=== PATIENT | female | born 1955 | race Caucasian/White ===

== ENCOUNTER → 2016-08-25 | Outpatient (CLI) | payer OTHER ==
[~2016-08-25] MED LIST: ACET1TAB84 PO; HYDR-5688 PO; LOSA50TA6 PO; NAPR1TAB9 PO
== END | disposition home or self-care (01) ==
LOC: C.PATHSPEC 13:29
PROVIDERS: ATTEND Dermatology
DX: L57.0 Actinic keratosis (principal)

== ENCOUNTER → 2016-09-12 | Outpatient (CLI) | payer OTHER ==
[2016-09-12 13:45] LABS: BASO % 0.5 %; BASO ABS # 0.03 K/uL (0-0.2); COMPLETE YES; EOS % 5.9 %; HEMATOCRIT 41.6 % (37-47); IG% 0.3 %; LYMPH % 22.1 %; LYMPH ABS # 1.41 K/uL (1.2-3.4); MEAN CELL VOLUME 89.3 fL (80-100); MEAN CORPUSCULAR HEMOGLOBIN 29.6 pg (25-34); MEAN CORPUSCULAR HGB CONC 33.2 g/dl (32-36); MEAN PLATELET VOLUME 11.3 fL (7.4-10.4); MONO % 9.5 %; NEUT % 61.7 %; PLATELET COUNT 174 K/uL (130-400); RED BLOOD COUNT 4.66 M/uL (4.2-5.4); WHITE BLOOD COUNT 6.39 K/uL (4.8-10.8)
[2016-09-12 15:16] LABS: ALT/SGPT 46 U/L (12-78); BLOOD UREA NITROGEN 13 mg/dl (7-18); BUN/CREATININE RATIO 16.8 (10-20); CALCIUM 8.9 mg/dl (8.5-10.1); CARBON DIOXIDE 30 mmol/L (21-32); CHLORIDE 108 mmol/L (98-107); CHOLESTEROL 172 mg/dl (0-200); GLUCOSE 111 mg/dl (70-99); POTASSIUM 4.2 mmol/L (3.5-5.1); SODIUM 141 mmol/L (136-145); TRIGLYCERIDES 136 mg/dl (0-150); VERY LOW DENSITY LIPOPROT CALC 27 mg/dl
[2016-09-12 15:26] LABS: ALKALINE PHOSPHATASE 60 U/L (45-117); AST/SGOT 25 U/L (15-37); CHOLESTEROL/HDL RATIO 3.6; HDL CHOLESTEROL 48 mg/dl; LDL CHOLESTEROL CALCULATED 97 mg/dl
== END | disposition home or self-care (01) ==
LOC: C.LABMFLN 07:59
PROVIDERS: ATTEND Family Medicine
DX: E78.5 Hyperlipidemia, unspecified (principal); I10 Essential (primary) hypertension

== ENCOUNTER → 2016-09-22 | Outpatient (CLI) | payer OTHER ==
--- NOTE | 2016-09-22 14:32 | MAMMOGRAPHY REPORT ---
BILATERAL DIGITAL SCREENING MAMMOGRAM WITH CAD: 09/22/2016 CLINICAL HISTORY: Routine screening. TECHNIQUE: Current study was also evaluated with a Computer Aided Detection (CAD) system. Bilateral CC and MLO views were obtained. COMPARISON: Comparison is made to exams dated: 09/21/2015 mammogram, 07/11/2013 mammogram, 09/11/2014 itz mogram, 07/09/2012 mammogram, 07/07/2011 mammogram, and 07/01/2010 mammogram - [facility] BREAST COMPOSITION: There are scattered areas of fibroglandular density in both breasts. FINDINGS: No suspicious masses, calcifications, or areas of architectural distortion are noted in ei ther breast. There has been no significant interval change compared to prior exams. Bilateral benign -appearing calcifications are not significantly changed, including a small cluster of calcifications in the left upper outer quadrant which is stable dating back to at least the 2007 exam. IMPRESSION: ACR BI-RADS CATEGORY 2: BENIGN There is no mammographic evidence of malignancy. A 1 year screening mammogram is recommended. The pa tient will receive written notification of the results. Approximately 10% of breast cancers are not detected with mammography. A negative mammographic report should not delay biopsy if a clinically suggestive mass is present. Vijaya Person M.D. ah/:09/22/2016 10:33:19 Central Supply Assistant: Stephan BHANDARI)(M), [facility] letter sent: Normal 1/2 BI-RADS Code: ACR BI-RADS Category 2: Benign
== END | disposition home or self-care (01) ==
LOC: C.MAMM 09:52
PROVIDERS: ATTEND Obstetrics & Gynecology
DX: Z12.31 Encounter for screening mammogram for malignant neoplasm of breast (principal)

== ENCOUNTER → 2016-11-03 | Day surgery (SDC) | payer OTHER ==
[2016-10-18 15:14] VITALS: BMI 44.0
[~2016-11-03] VITALS: Ht 157.5 cm; Wt 109.1 kg
[~2016-11-03] MED LIST changes: -ACET1TAB84 PO; -HYDR-5688 PO; +LIDOCAINE HCL 2% 2 ML VIAL (20MG/ML) ONE; +PROPOFOL IV EMULSION 10 MG/ML 20 ML VIAL IV ONE; +SODIUM CHLORIDE 0.9% 500ML 500 ML IV ONE
[2016-11-03 08:22] VITALS: Ht 157.5 cm; Wt 109.1 kg
--- NOTE | 2016-11-03 08:29 | Endo History and Physical ---
History & Physical Date of Service: Nov 03, 2016. Chief Complaint: Screening Referring Physician: Dr. Small History of Present Illness 61 yo CF who presents for screening colonoscopy. Past Surgical History Hx Cardiac Surgery: No Hx Internal Defibrillator: No Hx Pacemaker: No Hx Abdominal Surgery: Yes ( X2) Hx of Implantable Prosthesis: No Hx Post-Op Nausea and Vomiting: No Hx Cancer Surgery: No Hx Thoracic Surgery: No Hx Orthopedic: Yes (LT ANKLE REPAIR S/P BREAK) Hx Urinary Tract Surgery: No Family History IBD Social History Smoking Status: Never Smoker Hx Substance Use: No Hx Alcohol Use: No Allergies Coded Allergies: Levofloxacin (Verified Allergy, Unknown, RAPID HEART BEAT, 11/03/16) Current Medications Reported Home Medications Medications Dose Route/Sig Max Daily Dose Days Date Category Aleve (Naproxen) 220 Mg Tab 220 Mg PO DAILY PRN 10/18/16 Reported Cozaar (Losartan Potassium) 50 Mg Tab 50 Mg PO QAM 10/18/16 Reported Vital Signs Weight (Kilograms): 109.09 Height (Feet): 5 Height (Inches): 2 Physical Exam General Appearance: WD/WN, no apparent distress Respiratory/Chest: Auscultation: breath sounds normal Cardiovascular: Heart Auscultation: RRR Abdomen: Bowel Sounds: normal Inspection & Palpation: soft, non-distended, no tenderness, guarding & rebound Assessment and Plan Assessment: 61 yo CF who presents for screening colonoscopy. Plan: Proceed with colonoscopy.
--- NOTE | 2016-11-03 09:02 | GI REPORT ---
Procedure Date: 11/03/2016 8:27 AM Procedure: Colonoscopy Indications: Screening for colorectal malignant neoplasm Medicines: Monitored Anesthesia Care Complications: No immediate complications. Estimated Blood Loss: Estimated blood loss: none. Procedure: Pre-Anesthesia Assessment: - Prior to the procedure, a History and Physical was performed, and patient medications and allergies were reviewed. The patient's tolerance of previous anesthesia was also reviewed. The risks and benefits of the procedure and the sedation options and risks were discussed with the patient. All questions were answered, and informed consent was obtained. Prior Anticoagulants: The patient has taken no previous anticoagulant or antiplatelet agents. ASA Grade Assessment: III - A patient with severe systemic disease. After reviewing the risks and benefits, the patient was deemed in satisfactory condition to undergo the procedure. After I obtained informed consent, the scope was passed under direct vision. Throughout the procedure, the patient's blood pressure, pulse, and oxygen saturations were monitored continuously. The scope was introduced through the anus and advanced to the terminal ileum. The colonoscopy was performed without difficulty. The patient tolerated the procedure well. The quality of the bowel preparation was good. The terminal ileum, ileocecal valve, appendiceal orifice, and rectum were photographed. Findings: Non-bleeding internal hemorrhoids were found during retroflexion. The hemorrhoids were small. The exam was otherwise without abnormality. Impression: - Non-bleeding internal hemorrhoids. - The examination was otherwise normal. - No specimens collected. Recommendation: - Resume previous diet. - Continue present medications. - Repeat colonoscopy in 10 years for surveillance. - Return to primary care physician as previously scheduled. Denny Lam DO 11/03/2016 9:02:04 AM This report has been signed electronically. Note Initiated On: 11/03/2016 8:27 AM I attest to the content of the Intraoperative Record and orders documented therein, exceptions below
--- NOTE | 2016-11-03 09:03 | Discharge Instructions ---
Endoscopy Patient Instructions Date / Procedure(s) Performed Nov 03, 2016. Colonoscopy Allergy Information Coded Allergies: Levofloxacin (Verified Allergy, Unknown, RAPID HEART BEAT, 11/03/16) Discharge Date / Findings Nov 03, 2016. Internal hemorrhoids Medication Instructions OK to resume all medications today as prescribed Reported Home Medications Medications Dose Route/Sig Max Daily Dose Days Date Category Aleve (Naproxen) 220 Mg Tab 220 Mg PO DAILY PRN 10/18/16 Reported Cozaar (Losartan Potassium) 50 Mg Tab 50 Mg PO QAM 10/18/16 Reported Provider Instructions Activity Restrictions - No exercising or heavy lifting for 24 hours. - Do not drink alcohol the day of the procedure. - Do not drive a car or operate machinery until the day after the procedure. - Do not make any important decisions or sign important papers in 24 hours after the procedure. Following Day: - Return to full activity which may include returning to work/school. Diet Start your diet with liquids and light foods (jello, soup, juice, toast). Then eat your usual diet if not nauseated. Treatment For Common After Affects For mild abdominal pain, bloating, or excessive gas: - Rest - Eat lightly - Lie on right side Follow-Up Information Follow-up with dr. rushing as scheduled Anesthesia Information What You Should Know You have had a procedure that required some medicine to reduce anxiety and discomfort. This treatment is called moderate sedation. After receiving the treatment, you may be sleepy, but you will be able to breathe on your own. The effects of the treatment may last for several hours. Follow these instructions along with Activity/Diet recommendations noted above: * Do NOT do anything where dizziness or clumsiness would be dangerous. * Rest quietly at home today, then you can be up and about tomorrow. * Have a responsible person stay with you the rest of today. * You may have had an I.V. today. If so, you may take the dressing off later today. Recommendations Call your doctor if: * Trouble breathing * Continuous vomiting for more than 24 hours * Temperature above 101 degrees * Severe abdominal pain or bloating * Pain not relieved by pain medicine ordered * There is increased drainage or redness from any incision * A large amount of rectal bleeding greater than 2-3 tablespoons. (If you had a polyp/s removed or have hemorrhoids, a small amount of blood - from the rectum is to be expected.) * You have any unanswered questions or concerns. IN THE EVENT OF A SERIOUS EMERGENCY, GO TO THE NEAREST EMERGENCY ROOM Your discharge instructions were prepared by provider Denny Lam. Patient Instructions Signature Page Kathia [place] Patient (or Guardian) Signature/Date: I have read and understand the instructions given to me by my caregivers. Caregiver/RN/Doctor Signature/Date: The above-named patient and/or guardian has received patient instructions on this date. + Original Patient Signature Page (only) stays with chart. Please make copy for patient.
--- NOTE | 2016-11-03 09:30 | Anesthesiology Progress Note ---
Anesthesia Post Op Note Date & Time Nov 03, 2016 at 09:30 Vital Signs Pain Intensity: 0 Vital Signs Past 12 Hours Date Time Temp Pulse Resp B/P (MAP) Pulse Ox O2 Delivery O2 Flow Rate FiO2 11/03/16 09:00 87 20 119/69 (86) 96 Room Air 11/03/16 08:31 36.9 87 18 133/89 (104) 95 Room Air Notes Mental Status: alert / awake / arousable, participated in evaluation Pt Amnestic to Procedure: Yes Nausea / Vomiting: adequately controlled Pain: adequately controlled Airway Patency, RR, SpO2: stable & adequate BP & HR: stable & adequate Hydration State: stable & adequate Anesthetic Complications: no major complications apparent
[2016-11-03 09:32] VITALS: BP 112/72; PULSE 71; O2SAT 92
== END | disposition home or self-care (01) ==
LOC: C.GI 08:12
PROVIDERS: ATTEND Internal Medicine
DX: Z12.11 Encounter for screening for malignant neoplasm of colon (principal); K64.8 Other hemorrhoids; I10 Essential (primary) hypertension; Z68.41 Body mass index [BMI] 40.0-44.9, adult; E66.9 Obesity, unspecified

== ENCOUNTER → 2017-01-05 | Outpatient (CLI) | payer OTHER ==
[~2017-01-05] MED LIST changes: -LIDOCAINE HCL 2% 2 ML VIAL (20MG/ML) ONE; -PROPOFOL IV EMULSION 10 MG/ML 20 ML VIAL IV ONE; -SODIUM CHLORIDE 0.9% 500ML 500 ML IV ONE
== END | disposition home or self-care (01) ==
LOC: C.PAPS 13:55
PROVIDERS: ATTEND Obstetrics & Gynecology
DX: Z01.419 Encounter for gynecological examination (general) (routine) without abnormal findings (principal)

== ENCOUNTER → 2017-09-14 | Outpatient (CLI) | payer OTHER ==
[2017-09-14 12:59] LABS: BASO % 0.3 %; BASO ABS # 0.02 K/uL (0-0.2); EOS % 3.8 %; EOS ABS # 0.27 K/uL (0-0.5); HEMATOCRIT 41.9 % (37-47); HEMOGLOBIN 13.9 g/dL (12.0-16.0); IG# 0.01 K/uL (0.00-0.02); LYMPH % 20.1 %; LYMPH ABS # 1.44 K/uL (1.2-3.4); MEAN CELL VOLUME 88.6 fL (80-100); MEAN CORPUSCULAR HEMOGLOBIN 29.4 pg (25-34); MEAN CORPUSCULAR HGB CONC 33.2 g/dl (32-36); MEAN PLATELET VOLUME 11.4 fL (7.4-10.4); MONO % 5.7 %; MONO ABS # 0.41 K/uL (0.11-0.59); NEUT ABS # 5.02 K/uL (1.4-6.5); PLATELET COUNT 199 K/uL (130-400); RED CELL DISTRIBUTION WIDTH CV 13.1 % (11.5-14.5); RED CELL DISTRIBUTION WIDTH SD 42.5 fL (36.4-46.3); WHITE BLOOD COUNT 7.17 K/uL (4.8-10.8)
[2017-09-14 13:31] LABS: ALBUMIN 3.8 gm/dl (3.4-5.0); ALKALINE PHOSPHATASE 57 U/L (45-117); ALT/SGPT 31 U/L (12-78); AST/SGOT 17 U/L (15-37); BLOOD UREA NITROGEN 16 mg/dl (7-18); CALCIUM 9.1 mg/dl (8.5-10.1); CARBON DIOXIDE 27 mmol/L (21-32); CHOLESTEROL 171 mg/dl (0-200); CREATININE 0.68 mg/dl (0.60-1.20); GLUCOSE 100 mg/dl (70-99); LDL CHOLESTEROL CALCULATED 91 mg/dl; SODIUM 139 mmol/L (136-145); TOTAL PROTEIN 7.4 gm/dl (6.4-8.2)
== END | disposition home or self-care (01) ==
LOC: C.LABMFLN 09:02
PROVIDERS: ATTEND Family Medicine
DX: I10 Essential (primary) hypertension (principal); E78.5 Hyperlipidemia, unspecified

== ENCOUNTER → 2017-09-28 | Outpatient (CLI) | payer OTHER ==
--- NOTE | 2017-09-28 14:29 | MAMMOGRAPHY REPORT ---
BILATERAL DIGITAL SCREENING MAMMOGRAM TOMOSYNTHESIS WITH CAD: 09/28/2017 CLINICAL HISTORY: Routine screening. Patient has no complaints. TECHNIQUE: Breast tomosynthesis in addition to standard 2D mammography was performed. Current study w as also evaluated with a Computer Aided Detection (CAD) system. COMPARISON: Comparison is made to exams dated: 09/22/2016 mammogram, 09/21/2015 mammogram, 09/11/2014 ma mmogram, 07/11/2013 mammogram, 07/09/2012 mammogram, and 07/07/2011 mammogram - [facility] BREAST COMPOSITION: There are scattered areas of fibroglandular density in both breasts. FINDINGS: No suspicious masses, calcifications, or areas of architectural distortion are noted in either breast . There has been no significant interval change compared to prior exams. Bilateral benign-appearing calcifications are not significantly changed, including a small cluster of calcifications in the left upper outer quadrant which is stable dating back to at least the 2007 exam. IMPRESSION: ACR BI-RADS CATEGORY 2: BENIGN There is no mammographic evidence of malignancy. A 1 year screening mammogram is recommended.( 019) The patient will receive written notification of the results. Some breast cancers are not detected with mammography. A negative mammographic report should not jethro y biopsy if a clinically suggestive mass is present. Vijaya Person M.D. ah/:09/28/2017 13:35:32 Account Liaison Hospice: RT Nalini(Arthur)(M), [facility] letter sent: Normal 1/2 BI-RADS Code: ACR BI-RADS Category 2: Benign
== END | disposition home or self-care (01) ==
LOC: C.MAMM 09:40
PROVIDERS: ATTEND Family Medicine
DX: Z12.31 Encounter for screening mammogram for malignant neoplasm of breast (principal)

== ENCOUNTER 2021-05-23 07:53 | Inpatient (IN) ==
--- NOTE | 2021-05-05 16:05 | Anesthesiology Consultation ---
Date of Service May 05, 2021 Assessment & Plan (1) Encounter for pre-operative examination: - Case reviewed with Dr. Daniel who agreed Eliquis is typically stopped 72 hours prior to surgery in order to undergo neuraxial anesthesia and advised contacting cardiology office. Tiffany at cardiology office states will have provider review and document if patient is acceptable to hold Eliquis x 72 hours in order to receive spinal anesthesia. Awaiting cardiology determination on anticoagulation interval. - cardiology office visit 04/21/2021: "...cardiovascular preoperative examination...tentatively scheduled for right knee replacement on 05/23/[address] Del Cid...admits to feeling rare palpitations...in terms of preop risk assessment...low risk (less than 0.4%) for any adverse perioperative cardiovascular events associated with R TKA surgery...good medication regimen and non other cardiac testing or interventions would further lower that risk...states she understands and is accepting of that risk and wishes to proceed with surgery. Instructed patient to hold Eliquis 48 hours prior to surgery..." - COVID screening: Per vulnerability assessment analyst on 05/05/2021: Travel screen negative, no known COVID-19 positive contacts or current COVID-19 related symptoms in past 2 weeks. Patient Surgeon arranging preop COVID testing, scheduled 05/19/2021. Awaiting results. Chart Review Chart Review: Pending: Refer to Additional Notes / Consult section and Patient NOT seen in Pre Admission Testing History Surgery Operation Date: 05/23/21 09:55 Proposed Procedures p Right Total Knee Arthroplasty - Booker Del Cid MD Surgery re-schedule since 01/2021 anesthesia review. Height/Weight Height: 5 ft 1.5 in Weight: 105.233 kg Allergies Allergy/AdvReac Type Severity Reaction Status Date / Time levofloxacin AdvReac Unknown Rapid Verified 05/05/21 14:23 heart beat Medications Home Medications Medication Instructions Recorded Confirmed Last Taken citicoline 500 mg capsule 500 mg PO QAM 12/22/20 05/05/21 Unknown ([facility]) losartan 100 mg tablet 100 mg PO QAM #90 tab 02/16/21 05/05/21 Unknown metoprolol succinate 25 mg 25 mg PO QAM #90 tab 02/16/21 05/05/21 Unknown tablet,extended release 24 hr apixaban 5 mg tablet (Eliquis) 5 mg PO BID #60 tab 02/24/21 05/05/21 Unknown acetaminophen 650 mg 1,300 mg PO Q12H PRN 05/05/21 05/05/21 Unknown tablet,extended release (Tylenol Arthritis Pain) fluticasone propionate 50 1 spray INTRANASAL HS 05/05/21 05/05/21 Unknown mcg/actuation nasal spray,suspension gabapentin 100 mg capsule 100 mg PO BID 05/05/21 05/05/21 Unknown multivitamin 1 tab PO QAM 05/05/21 05/05/21 Unknown Past Medical History Medical History Atrial fibrillation F/U DR MAYTE HAMMOND Bulging disc Dyslipidemia Generalized osteoarthritis of multiple sites Hypertension Morbid obesity Neuropathy Right cervical radiculopathy Sleep apnea CPAP (compliant) Past Family History Family History Mother Dyslipidemia Hypertension Daughter PONV (postoperative nausea and vomiting) Denies family history of Ovarian cancer Breast cancer Colorectal cancer Past Surgical History Surgical History H/O section H/O colonoscopy 2017 History of ankle surgery History of wisdom tooth extraction Social History Smoking Status: Never smoker Do You Dip or Chew Tobacco: No Hx Alcohol Use: No Hx Substance Use: No substance use type: does not use Lab Results Anesthesia Preop Results Results Anesthesia Widget: WBC 7.02 K/uL (4.8-10.8) 04/26/21 Hgb 13.6 g/dL (12.0-16.0) 04/26/21 Hct 41.8 % (37-47) 04/26/21 Plt 233 K/uL (130-400) 04/26/21 Na 138 mmol/L (136-145) 04/26/21 K 4.2 mmol/L (3.5-5.1) 04/26/21 Cl 102 mmol/L (98-107) 04/26/21 CO2 30 mmol/L (21-32) 04/26/21 BUN 13 mg/dl (6-23) 04/26/21 Creat 0.72 mg/dl (0.6-1.2) 04/26/21 Glucose Level 106 mg/dl (70-99(Fasting)) H 04/26/21 PT 10.6 Seconds (9.0-12.0) 04/26/21 PTT 29.5 Seconds (21.0-31.0) 04/26/21 INR 1.0 (0.9-1.1) 04/26/21 HA1c 5.9 % (4.5-5.6) H 04/26/21 Urine Color Yellow 04/26/21 Urine Appearance Clear (Clear) 04/26/21 Urine pH 7.0 (4.5-7.5) 04/26/21 Urine Specific [place] 1.014 (1.000-1.030) 04/26/21 Urine Protein Negative (Negative) 04/26/21 Urine Glucose (UA) Negative (Negative) 04/26/21 Urine Ketones Negative (Negative) 04/26/21 Urine Blood Negative (Negative) 04/26/21 Urine Nitrite Negative (Negative) 04/26/21 Urine Bilirubin Negative (Negative) 04/26/21 Urine Urobilinogen Negative (Negative) 04/26/21 Urine Leukocyte Esterase Negative (Negative) 04/26/21 Testing Electrocardiogram Date: 12/13/20 NSR, rate 63 bpm Chest X-Ray Date: 01/07/21 FINDINGS: Lung volumes are normal. Lungs are clear. There is no pneumothorax or pleural effusion. Cardiac size is at the upper limits of normal. Mediastinal contours are normal. There is no evidence for pulmonary edema. IMPRESSION: No acute cardiopulmonary findings. Echocardiogram Date: 09/03/18 LVEF 64%. No regional motion abnormality. Mild mitral annular calcification. Grade 1 diastolic dysfunction.
--- NOTE | 2021-05-22 19:56 | History & Physical Report ---
Date of Service May 22, 2021 Assessment & Plan (1) Primary osteoarthritis of right knee: Plan: Treatment options discussed with the patient. She has failed conservative measures. She would like to proceed with surgical intervention. Risks, benefits and alternatives to surgery including but not limited to infection, DVT, pain, stiffness, need for revision surgery, damage to blood vessels, damage to nerves, PE, , were discussed with the patient and they wish to proceed. Plan on right total knee arthroplasty scheduled for 05/23/21 at [facility] with Dr. Del Cid. Will plan on home health PT post op. Will plan on resuming home Eliquis post op for DVT prophylaxis. All questions answered. She will follow up post op. History of Present Illness Chief Complaint: Right knee pain Primary Care Provider: Balbina Small MD 65 year old female with PMHx significant for HTN, a-fib, QAMAR presents with longstanding right knee pain. She has pain interfering with her daily activities. She has failed conservative measures inlcuding injections. She would like to proceed with knee replacement. Patient denies headaches, sweats, fevers, chills, double vision, blurred vision, cough, sore throat, dysphagia, chest pain, sob, wheezing, n/v/d/c, numbness, tingling, fatigue, urinary symptoms, mood disorders. ROS positive for right knee pain and stiffness. Allergies Allergy/AdvReac Type Severity Reaction Status Date / Time levofloxacin AdvReac Unknown Rapid Verified 05/10/21 10:23 heart beat Home Medications Medication Instructions Recorded Confirmed Type citicoline 500 mg capsule 500 mg PO QAM 12/22/20 05/10/21 History ([facility]) losartan 100 mg tablet 100 mg PO QAM #90 tab 02/16/21 05/10/21 Rx metoprolol succinate 25 mg 25 mg PO QAM #90 tab 02/16/21 05/10/21 Rx tablet,extended release 24 hr apixaban 5 mg tablet (Eliquis) 5 mg PO BID #60 tab 02/24/21 05/10/21 Rx acetaminophen 650 mg 1,300 mg PO Q12H PRN 05/05/21 05/10/21 History tablet,extended release (Tylenol Arthritis Pain) fluticasone propionate 50 1 spray INTRANASAL HS 05/05/21 05/10/21 History mcg/actuation nasal spray,suspension gabapentin 100 mg capsule 100 mg PO BID 05/05/21 05/10/21 History multivitamin 1 tab PO QAM 05/05/21 05/10/21 History Past Med/Surg History Medical History Atrial fibrillation Bulging disc Dyslipidemia Generalized osteoarthritis of multiple sites Hypertension Morbid obesity Neuropathy Right cervical radiculopathy Sleep apnea Surgical History H/O section H/O colonoscopy History of ankle surgery History of wisdom tooth extraction Family History Mother Dyslipidemia Hypertension Daughter PONV (postoperative nausea and vomiting) Denies family history of Ovarian cancer Breast cancer Colorectal cancer Social History Smoking Status: Never smoker Second Hand Exposure: Yes (FATHER SMOKED); Hx Alcohol Use: No Hx Substance Use: No Preferred Language: Luxembourger Communication Ability: Effective Visual Impairment: No Limitations Hearing Ability: Normal Missile Mechanic Required: No Beliefs That Will Affect Care: None marital status: Current Living Situation: Spouse and Family current occupational status: retired current occupation: Feels Safe at Home: Yes Childhood Exposure to Second-Hand Smoke: Yes Diet Comment: NUTRI SYSTEM caffeine: Yes during the past year weight has: remained stable Dental Care, Regularly: No Physical Activity Frequency: Does not Exercise Seatbelt Use: always Sunscreen Use: Yes Assistive Devices: Cane and Glasses Review of Systems All systems reviewed & are unremarkable except as noted in HPI & below Physical Exam Constitutional: well developed and well nourished; no acute distress Eyes: PERRL, conjunctivae normal, anicteric sclerae ENMT: external ear and nose normal, oropharynx normal Neck: trachea midline, no thyromegaly Respiratory: normal respiratory effort, lungs clear to auscultation Cardiovascular: RRR, no murmur, no edema Musculoskeletal: Right knee: Varus alignment. Mild effusion. Tenderness medial joint line. Moderate crepitation with ROM. ROM is 15-90 degrees. Stable to valgus and varus stress. Skin: no rashes, warm and dry Neurologic: patellar DTR's 2+ bilat, sensation intact Psychiatric: A+Ox3, euthymic affect Results & Data ([place]) Diagnostic Findings Right knee radiographs demonstrates severe endstage tricompartmental osteoarthritis with varus alignment. Patient is bone on bone medial compartment with periarticular osteophyte formation.
[~2021-05-23 07:53] MED LIST changes: +ACETAMINOPHEN 500 MG TAB PO SCH; +BUPIVACAINE 0.5 % 5 MG/1 ML PF 10ML VIAL ONE; +CeleBREX 200 MG CAP PO SCH; +EPINEPHrine INJ 1 MG/ML AMP ONE; +FAMOTIDINE 20 MG TAB PO SCH; -LOSA50TA6 PO; +LR 500ML BOLUS, THEN 15ML/HR IV SCH; +METOCLOPRAMIDE HCL 10 MG TABLET PO SCH; -NAPR1TAB9 PO; +ROPIVACAINE 0.5% 5 MG/ML 30 ML VIAL ONE; +ROPIVACAINE 0.5% HCL/PF 150 MG, BUPIVACAINE 0.75% MPF 20 ML, EPINEPHrine 30MG/30ML (OR ... INSTIL SCH; +TRANEXAMIC ACID 1,000 MG **IV Intra-op IV SCH; +TRANEXAMIC ACID 1,000 MG **IV Pre-op IV SCH; +ceFAZolin 2000MG 2,000 MG/15 ML SYR IV SCH; +dexAMETHasone 4 MG TAB PO SCH
[2021-05-23] MEDS: GABAPENTIN 300 MG CAP PO SCH ×2 (08:46→09:54)
[2021-05-23] MEDS ORDERED: GABAPENTIN 100 MG CAP PO ONE (09:00)
[2021-05-23] MEDS ORDERED: PROPOFOL IV EMULSION 10 MG/ML 20 ML VIAL IV ONE (09:17)
[2021-05-23] MEDS ORDERED: MIDAZOLAM HCL 1 MG/ML 2ML VIAL ONE (09:17)
[2021-05-23] MEDS ORDERED: LIDOCAINE 2% 2 ML VIAL/AMP(20MG/ML) INFIL ONE (09:17)
--- NOTE | 2021-05-23 09:45 | History & Physical Bridge Note ---
Date of Service May 23, 2021 History & Physical Bridge Note I have examined the patient, reviewed the History & Physical and in the interval since the performance of the History & Physical I have noted the following changes of clinical significance: no changes noted
[2021-05-23] MEDS ORDERED: ORTHO JOINT ANESTHETIC ONE (09:47)
[2021-05-23] MEDS ORDERED: ONDANSETRON INJ 2 MG/ML 2 ML VIAL ONE ×2 (10:54→12:51)
[2021-05-23] MEDS ORDERED: DEXAMETHASONE SOD INJ 4 MG/ML VIAL ONE (10:54)
[2021-05-23] MEDS ORDERED: fentaNYL citrate 100 MCG/2 ML VIAL ONE ×3 (10:58→12:06)
[2021-05-23] MEDS ORDERED: ePHEDrine sulfate 50 MG/ML AMP IV PRN (11:20)
[2021-05-23] MEDS ORDERED: fentaNYL citrate 100 MCG/2 ML VIAL IV PRN (11:20)
[2021-05-23] MEDS ORDERED: HYDROmorphone INJ 1 MG/ML SYRINGE IV PRN (11:20)
[2021-05-23] MEDS ORDERED: ONDANSETRON INJ 2 MG/ML 2 ML VIAL IV PRN ×2 (11:20→15:29)
[2021-05-23] MEDS ORDERED: ATROPINE SULFATE 0.1 MG/ML 10ML SYR IV PRN (11:20)
[2021-05-23] MEDS ORDERED: HYDROmorphone INJ 2 MG/ML SYR/VIAL ONE (12:10)
--- NOTE | 2021-05-23 13:16 | Post Operative Brief Note ---
Immediate Post Op Note v1 Date of Surgery May 23, 2021 Pre & Post Diagnosis Operation Date: 05/23/21 09:55 Pre-Op Diagnosis: Osteoarthritis knee right, obesity BMI 43.1 Post-Op Diagnosis: Osteoarthritis knee right, obesity BMI 43.1 I identified the patient and participated in the time-out.: Yes Procedure Operation Date: 05/23/21 09:55 Actual Procedures p Right Total Knee Arthroplasty(Right), superficial wound VAC and lateral release. Booker Del Cid MD Surgeon Booker Del Cid MD Corporate Secretary Dwight ABNKS Estimated Blood Loss 5 Findings Consistent with Post-Op Diagnosis Specimens Bone cuts Drains Hemovac Drain Anesthesia Type General Regional Complications none Disposition Disposition: Recovery Room Overlapping Procedure I was immediately available: during the entire case.
--- NOTE | 2021-05-23 13:32 | Operative Report ---
Post Operative Report Pre & Post Diagnosis Operation Date: 05/23/21 09:55 Pre-Op Diagnosis: Osteoarthritis knee right, morbid obesity BMI 43.1 Post-Op Diagnosis: Osteoarthritis knee right, more obesity BMI 43.1 I identified the patient and participated in the time-out.: Yes Procedure Operation Date: 05/23/21 09:55 Actual Procedures p Right Total Knee Arthroplasty(Right), superficial wound VAC, lateral release, increased difficulty BMI 43.1Esusan Del Cid MD Surgeon Booker Del Cid MD Inspector Electromechanical Dwight BANKS Estimated Blood Loss 5 Findings Consistent with Post-Op Diagnosis Specimens Bone cuts Drains 2 Hemovac Anesthesia Type General Regional Complications none Disposition Disposition: Recovery Room Indications 65-year female progressive osteoarthritis in her knee. She has very severe osteoarthritis and dysfunction with stiffness and pain. She is very limited mobility. Radiographs demonstrate severe tricompartmental osteoarthritis some bone loss medial compartment with a varus knee. Description of Procedure Patient taken to the operating room after regional block anesthetic was placed and an attempted spinal anesthesia was placed however that was unsuccessful and decision was to proceed with general anesthesia. Patient was placed supine on the operating table. A pneumatic tourniquet was placed about the obese right upper thigh. The right lower extremity was prepped and draped in sterile fashion. Knee exam demonstrated obesity some edema of the lower leg a flexion contracture of 20 degrees and knee flexion to 95 degrees only with no pseudolaxity significant crepitation. The leg was elevated exsanguinated with an Esmarch bandage and pneumatic tourniquet was raised to 350 millimeters of mercury. Skin incised sharply in longitudinal fashion. Subcutaneous flaps elevated. Incision was made through the medial retinaculum extending up in the mid third of the quadriceps tendon and down to the medial tibial tubercle. Intra-articular findings demonstrated severe tricompartmental osteoarthritis with a very stiff knee and chronic medial meniscus tear with bone loss medial compartment eburnated bone. Grade 4 medial and lateral compartments. The GalaDo triathlon total knee arthroplasty system was used. To expose the knee the infrapatellar fat pad was resected. The meniscal remnants and cruciate ligaments were resected. The anterior fat pad over the femur in the area of the anterior flange of the femoral component was resected. Lateral synovial bands release. The femur was exposed. An intramedullary drill hole was made into the canal. A guide elena was placed. Distal femoral cutting guide was adjusted to resect a 5 degree valgus cut with 10 millimeters distal femur resected. The knee was extended and a subperiosteal peel lateral release was performed around the patella. Patella width was measured and width was reproduced using a freehand cut technique and a 33 x 9 symmetrical patella component. The 3 drill holes were made and the excess lateral facet was beveled off to prevent any impingement. Attention was taken back to the femur which was exposed with retractors and the femoral sizing guide was pinned in position. The drill holes were placed in 3 of external rotation to match epicondylar axis. Femur sized for a 6 posterior stabilized component. The 4-in-1 cutting block was placed and then the anterior posterior and chamfer cuts are made. The tibia was then subluxed. The external tibial cutting guide was just to make a perpendicular cut to the long axis of the tibia below the most deficient bone loss side. A lamina spacecraft systems engineer was used and the flexion extension gaps were balanced. This required medial and posterior medial release. All posterior osteophytes removed. All meniscal remnants were resected. The tibia exposed and the trial tibial component size 5 was externally rotated in line with the tibial tubercle and pinned in position. The drill and punch for stem was used. The notch cutting device was centered appropriately and the femoral notch cut was made. The femoral trial was inserted. Trial tibial inserts were placed and size 11 posterior stabilized gave balanced ligaments through flexion and extension. Patella tracking was assessed. The patella tracked with some slight liftoff and tilt so I performed a lateral release leaving the synovium intact and patella tracks centrally. The trial components were then removed and the orthomix anesthetic cocktail was injected per protocol. The knee was then copiously irrigated with pulsatile lavage saline solution. Final components were then cemented with Simplex cement. Final components were Jonathan triathlon size 6 right PS femoral component, a triathlon size 5 universal baseplate with a 50 mm length 12 mm diameter cemented stem, 33 x 9 symmetrical patella. After the cement cured the Betadine soak was used for 3 minutes. Further pulsatile lavage irrigation was then performed and 2 Hemovac drains were brought out laterally. The quadriceps tendon and medial retinaculum were closed with figure of 8 #1 Vicryl sutures. The knee was taken through full range of motion and the repair was secure. Knee range of motion was 0 through 120. The subcutaneous tissues were closed with 2-0 Vicryl sutures. Skin was closed with siddhartha. Shell and Acticoat superficial wound VAC was applied. The patient tolerated the procedure well. There was some level of increased difficulty due to her obesity which added about 20 minutes of procedure time. Dwight BANKS was my physician assistant professor of communication who participated as first calender worker and was involved in all aspects of the procedure including patient positioning prepping and draping,leg positioning ,soft tissue retraction and instrument management and participated in the closing and will participate in postoperative care of the patient. The patient tolerated the procedure well. I attest to the content of the Intraoperative Record and any orders documented therein. Any exceptions are noted below.
--- NOTE | 2021-05-23 13:50 | XRay Report ---
XR knee RT 1 or 2V routine CLINICAL HISTORY: Surgical Post Op TECHNIQUE: 2 views of the right knee were obtained. Comparison: None available at the time of this dictation. FINDINGS: Patient is status post total knee arthroplasty with expected postsurgical changes including soft tiss ue swelling, subcutaneous emphysema, and surgical staple placement. No periarticular lucency or hardw are fracture is seen. No soft tissue abnormality is seen. IMPRESSION: No evidence of acute osseous injury. ACT 112: Negative or not required by law. Electronically signed by: Chicho Araya M.D. 05/23/2021 1:48 PM
--- NOTE | 2021-05-23 14:56 | Anesthesiology Progress Note ---
Date of Service May 23, 2021 Anesthesia Post Procedure Vital Signs Vital Signs: Temp Pulse Pulse Resp BP Pulse Ox 05/23/21 14:50 65 12 131/76 93 05/23/21 14:40 65 11 L 126/75 93 05/23/21 14:30 66 12 130/77 93 05/23/21 14:20 70 10 L 118/78 96 05/23/21 14:10 73 12 127/66 94 05/23/21 14:00 71 12 138/70 92 05/23/21 13:50 74 14 131/82 93 05/23/21 13:40 67 12 124/51 L 93 05/23/21 13:30 73 14 112/65 93 05/23/21 13:21 36.3 C L 68 10 L 137/75 92 05/23/21 08:19 36.8 C 66 20 157/93 H 98 Transfer of Care Handoff Completed per policy Notes Mental Status: alert / awake / arousable and participated in evaluation Patient Amnestic to Procedure: Yes Nausea / Vomiting: adequately controlled Pain: adequately controlled Airway Patency, RR, SpO2: stable & adequate BP & HR: stable & adequate Hydration State: stable & adequate Anesthetic Complications: no major complications apparent and Pt Satisfied with anesthetic care
[2021-05-23] MEDS ORDERED: bisacodyL 10 MG SUPP PR PRN (15:29)
[2021-05-23] MEDS ORDERED: oxyCODONE HCL IR 5 MG TAB (IMMEDIATE RELEASE) PO PRN (15:29)
[2021-05-23] MEDS ORDERED: NALOXONE HCL 0.4 MG/1 ML VIAL/CARP IV PRN (15:29)
[2021-05-23] MEDS ORDERED: HYDROmorphone INJ 0.5 MG/0.5 ML SYR IV PRN (15:29)
[2021-05-23] MEDS ORDERED: METOCLOPRAMIDE HCL INJ 5 MG/ML 2 ML VIAL IV PRN (15:29)
[2021-05-23] MEDS ORDERED: MAGNESIUM HYDROXIDE SUSP 30 ML UDC PO PRN (15:29)
[2021-05-23] MEDS: ACETAMINOPHEN 500 MG TAB PO SCH ×2 (16:26→21:52)
[2021-05-23] MEDS: SODIUM CHLORIDE 0.9% 1000ML 1,000 ML IV SCH (16:26)
[2021-05-23] MEDS: ceFAZolin 2000MG 2,000 MG/15 ML SYR IV SCH (19:15)
[2021-05-23] MEDS: DOCUSATE SODIUM 100 MG CAP PO SCH (20:28)
[2021-05-23] MEDS: GABAPENTIN 100 MG CAP PO SCH (20:28)
[2021-05-23] MEDS ORDERED: SENNA 8.6 MG TAB PO SCH (21:00)
[2021-05-23] MEDS ORDERED: FLUTICASONE PROPIONATE NA SPR 16 GM BTL SCH (21:00)
[2021-05-24] MEDS: ceFAZolin 2000MG 2,000 MG/15 ML SYR IV SCH (02:30)
[2021-05-24] MEDS: SODIUM CHLORIDE 0.9% 1000ML 1,000 ML IV SCH (02:33)
[2021-05-24] MEDS: ACETAMINOPHEN 500 MG TAB PO SCH (05:29)
[2021-05-24] MEDS: DOCUSATE SODIUM 100 MG CAP PO SCH (08:06)
[2021-05-24] MEDS: GABAPENTIN 100 MG CAP PO SCH (08:06)
--- NOTE | 2021-05-24 08:38 | Orthopedic Progress Note ---
Date of Service May 24, 2021 Assessment & Plan (1) Primary osteoarthritis of right knee: Plan: Postop day 1 status post right total knee arthroplasty. PT/OT protocols. Weightbearing as tolerated. DVT prophylaxis-apixaban 5 mg p.o. twice daily, SCDdonell, BRYANNA villa. Pain management as written. Labs pending. [place] planning-patient is planning for home health services upon discharge. Plan for discharge to home later today pending lab values and physical therapy status Admission and Anticipated Discharge Date Admission Date: May 23, 2021 Subjective Postop day 1 Patient is sitting up in bed awake and alert. Currently log skidder is present drawing her labs. She has no complaints this morning. Denies shortness of breath, chest pain, lightheadedness. Pain is controlled at this time. She is hoping to go home today. Physical Exam Physical Exam: Dressings are clean, dry, and intact. Calves are soft and nontender. Neurovascular is intact. Toes are mobile. She has good dorsiflexion plantarflexion of the right foot. Minimal drainage from her Hemovac at 25 mL from the latest shift. Results & Data ([facility]) Vital Signs (Past 12 Hours) Vital Signs Temp Pulse Resp BP BP Pulse Ox 05/24/21 07:49 36.9 C 63 18 121/78 96 05/24/21 03:00 37.0 C 63 18 113/68 96 05/23/21 22:56 36.9 C 66 16 113/68 95
[2021-05-24 08:44] LABS: Hematocrit (blood only) 34.6 % (37-47); Hemoglobin 11.4 g/dL (12.0-16.0); Mean Corpuscular Hemoglobin 29.8 pg (25-34); Mean Corpuscular Hgb Conc 32.9 g/dL (32-36); Mean Corpuscular Volume 90.3 fL (80-100); Mean Platelet Volume 10.9 fL (7.4-10.4); Platelet Count 175 K/uL (130-400); RDW Coefficient of Variation 13.7 % (11.5-14.5); RDW Standard Deviation 45.3 fL (36.4-46.3); Red Blood Count 3.83 M/uL (4.2-5.4); White Blood Count 14.05 K/uL (4.8-10.8)
[2021-05-24] MEDS ORDERED: MULTIVITAMIN TAB PO SCH (09:00)
[2021-05-24] MEDS ORDERED: APIXABAN 5 MG TABLET PO SCH (09:00)
[2021-05-24] MEDS ORDERED: NON-FORMULARY MEDICATION (Multivitamin Tablet) PO SCH (09:00)
[2021-05-24] MEDS ORDERED: METOPROLOL SUCC 25MG EXT REL TAB PO SCH (09:00)
[2021-05-24] MEDS ORDERED: CITICOLINE 500 MG PO SCH (09:00)
[2021-05-24] MEDS ORDERED: LOSARTAN POTASSIUM 50 MG TAB PO SCH (09:00)
[2021-05-24 09:13] LABS: BUN Creatinine Ratio 21.4 (10-20); Calcium 8.4 mg/dl (8.5-10.1); Creatinine Clr Calc Pharmacy 90.4 ml/min; Est GFR (African American) 105.4 ml/min; Est GFR (Non-African American) 90.9 ml/min; Potassium 4.1 mmol/L (3.5-5.1)
--- NOTE | 2021-05-24 11:15 | Hospitalist Consultation ---
Date of Consultation May 24, 2021 Assessment & Plan (1) Status post right knee replacement: -pod#1 -recommend utilizing incentive spirometer q4h -pain control as ordered by ortho -pt/ot ([facility])--> home health set up -hemovac management per ortho -will be resumed on eliquis which will provide dvt ppx -f/u with ortho in clinic as directed (2) Hypertension: -continue losartan and metoprolol succinate -bp well controlled (3) Dyslipidemia: -not currently treated -advise f/u with pcp, dietary modification, weight loss (4) Right cervical radiculopathy: -continue gabapentin as prescribed (5) Paroxysmal atrial fibrillation: -currently in NSR -continue toprol xl and eliquis (6) QAMAR on CPAP: -continue use of cpap at hs (7) Obesity, Class III, BMI 40-49.9 (morbid obesity): -encourage weight loss At this time, pt is medically stable for d/c home with home health. No additional recommendations. Medications can be continued as prescribed prior to hospitalization without change. Thank you for allowing us to participate in this patient's care, will sign off. Please feel free to notify/reconsult if the need should arise. Above plan of care to be d/w Dr. Murphy. Supervising Physician Co-Signing Physician Notes I personally saw and examined the patient. I verified all joseph points and agree with Lala Rashid PA-C with the following exceptions and/or additions: WN/WD, no respiratory distress, RRR HTN - well controlled on current medication, agree with continuing her usual medications, QAMAR - continue CPAP, pAF - currently RRR, resume anticoagulation when recommended by ortho post operatively Thanks you for the consult. We will sign off at this time. History of Present Illness Reason for Consultation: Medical management Requesting Physician: Dr. Del Cid Attending Physician: Booker Del Cid MD History of Present Illness Kathia Beach is a pleasant 65 yo WF with a pmhx of HTN, PAF, HLD, QAMAR, cervical radiculopathy and OA who was hospitalized on 05/23 for elective R TKA that failed conservative measures. Pt was taken to the OR, underwent general anesthesia. She had an uneventful perioperative course. She resides at home with her and daughter in a one story home. She plans to return there upon discharge. Hospitalists were consulted for medical management of her chronic conditions. She does admit to paroxysmal afib, takes Eliquis for this. She also has unt reated hyperlipidemia. Follows with cardiology and family doctor routinely. Had cardiac clearance in April 2021. She is seen on pod#1, she reports pain in right knee 5/10 after participating in therapy. She denies chest pain or dyspnea. No personal h/o blood clots. She is eating/drinking/voiding without issue. Allergies Allergy/AdvReac Type Severity Reaction Status Date / Time levofloxacin AdvReac Unknown Rapid Verified 05/23/21 08:15 heart beat Home Medications Medication Instructions Recorded Confirmed Type citicoline 500 mg capsule 500 mg PO QAM 12/22/20 05/23/21 History ([facility]) losartan 100 mg tablet 100 mg PO QAM #90 tab 02/16/21 05/23/21 Rx metoprolol succinate 25 mg 25 mg PO QAM #90 tab 02/16/21 05/23/21 Rx tablet,extended release 24 hr apixaban 5 mg tablet (Eliquis) 5 mg PO BID #60 tab 02/24/21 05/23/21 Rx fluticasone propionate 50 1 spray INTRANASAL HS 05/05/21 05/23/21 History mcg/actuation nasal spray,suspension gabapentin 100 mg capsule 100 mg PO BID 05/05/21 05/23/21 History multivitamin 1 tab PO QAM 05/05/21 05/23/21 History oxycodone 5 mg tablet 5 mg PO Q4H PRN #30 tab MDD 6 05/24/21 Rx polyethylene glycol 3350 17 gram 17 g PO DAILY PRN #5 ea 05/24/21 Rx oral powder packet (Miralax) Patient History Medical History Atrial fibrillation Bulging disc Dyslipidemia Generalized osteoarthritis of multiple sites Hypertension Morbid obesity Neuropathy Right cervical radiculopathy Sleep apnea Surgical History H/O section H/O colonoscopy History of ankle surgery History of wisdom tooth extraction Family History Mother Dyslipidemia Hypertension Daughter PONV (postoperative nausea and vomiting) Denies family history of Ovarian cancer Breast cancer Colorectal cancer Social History Smoking Status: Never smoker Second Hand Exposure: Yes (FATHER SMOKED); Do You Dip or Chew Tobacco: No; Hx Alcohol Use: No Hx Substance Use: No Preferred Language: Upper Sorbian Communication Ability: Effective Visual Impairment: No Limitations Hearing Ability: Normal Tool Checker Required: No Beliefs That Will Affect Care: None marital status: Current Living Situation: Spouse and Family current occupational status: retired current occupation: Other Information That Helps Us Care for You: No Feels Safe at Home: Yes Safety Concerns: Feels Safe At This Time Childhood Exposure to Second-Hand Smoke: Yes Diet Comment: NUTRI SYSTEM caffeine: Yes during the past year weight has: remained stable Dental Care, Regularly: No Physical Activity Frequency: Does not Exercise Seatbelt Use: always Sunscreen Use: Yes Assistive Devices: None Assistive Devices Comment: [place] UPPER-PERMANENT/CANE PRN Review of Systems Review of Systems: All systems reviewed and are unremarkable except as noted in HPI and below. Denies fever, chills, fatigue, headache, nasal congestion, sore throat, cough, chest pain, shortness of breath, palpitations, orthopnea, PND, abdominal pain, n/v/d, constipation, dysuria, hematuria, frequency, back pain, easy bruising or bleeding, skin lesions or rashes. Physical Exam Physical Exam: GENERAL: 65 yo obese WF. Pleasant, cooperative. NAD. EYES: EOMI. PERRLA. Anicteric. HENT: Moist mucous membranes. No scleral icterus. No cervical lymphadenopathy. LUNGS: Clear to auscultation bilaterally. No accessory muscle use. No W/R/R. CARDIOVASCULAR: Regular rate and rhythm. No M/G/R. No JVD. ABDOMEN: Soft, non-tender and non-distended. BS normal x 4 quad. EXTREMITIES: No edema. Non-tender. Peripheral pulses +2/4. R knee incision dressed/wrapped with wolf. Hemovac visualized. Neg beverly's sign. NEUROLOGIC: A&O x3. No focal neurological deficits. PSYCHIATRIC: Cooperative. Appropriate mood and affect. SKIN: Warm, dry, intact. No rashes or lesions. Results & Data Results & Data ([facility]) Vital Signs (Past 12 Hours) Vital Signs Temp Pulse Pulse Resp BP BP Pulse Ox 05/24/21 10:11 36.9 C 63 63 18 121/78 113/68 96 05/24/21 07:49 36.9 C 63 18 121/78 96 05/24/21 03:00 37.0 C 63 18 113/68 96 Laboratory Results 05/24/21 08:21 05/24/21 08:21 Diagnostic Findings Knee X-Ray 05/23/21 13:20 XR knee RT 1 or 2V routine CLINICAL HISTORY: Surgical Post Op TECHNIQUE: 2 views of the right knee were obtained. Comparison: None available at the time of this dictation. FINDINGS: Patient is status post total knee arthroplasty with expected postsurgical changes including soft tissue swelling, subcutaneous emphysema, and surgical staple placement. No periarticular lucency or hardware fracture is seen. No soft tissue abnormality is seen. IMPRESSION: No evidence of acute osseous injury. ACT 112: Negative or not required by law. Electronically signed by: Chicho Araya M.D. 05/23/2021 1:48 PM ECG Additional Comments: EKG from 12/2020 in chart reviewed: NSR PG Care Time/CCT Total # of Minutes Spent Total Time Spent with Patient: Total time spent is greater than 50% in coordination of care (as documented) at patient's floor/unit and/or counseling patient: Coding Level of Care Code 94202 Inpt Consult Level 4 Diagnoses Status post right knee replacement Z96.651 Hypertension I10 Hypertension type: essential hypertension Dyslipidemia E78.5 Right cervical radiculopathy M54.12 Paroxysmal atrial fibrillation I48.0 QAMAR on CPAP G47.33; Z99.89 Obesity, Class III, BMI 40-49.9 (morbid obesity) E66.01 (1) Hypertension Hypertension type: essential hypertension Qualified Code(s): I10 - Essential (primary) hypertension
--- NOTE | 2021-05-27 18:40 | Discharge Summary ---
Date of Service May 27, 2021 Admission HPI Per Admitting Provider 65 year old female with PMHx significant for HTN, a-fib, QAMAR presents with longstanding right knee pain. She has pain interfering with her daily activities. She has failed conservative measures inlcuding injections. She would like to proceed with knee replacement. Patient denies headaches, sweats, fevers, chills, double vision, blurred vision, cough, sore throat, dysphagia, chest pain, sob, wheezing, n/v/d/c, numbness, tingling, fatigue, urinary symptoms, mood disorders. ROS positive for right knee pain and stiffness. Admission Exam Per Admitting Provider Constitutional: well developed and well nourished; no acute distress Eyes: PERRL, conjunctivae normal, anicteric sclerae ENMT: external ear and nose normal, oropharynx normal Neck: trachea midline, no thyromegaly Respiratory: normal respiratory effort, lungs clear to auscultation Cardiovascular: RRR, no murmur, no edema Musculoskeletal: Right knee: Varus alignment. Mild effusion. Tenderness medial joint line. Moderate crepitation with ROM. ROM is 15-90 degrees. Stable to valgus and varus stress. Skin: no rashes, warm and dry Neurologic: patellar DTR's 2+ bilat, sensation intact Psychiatric: A+Ox3, euthymic affect Principal Diagnosis Right knee osteoarthritis Discharge Exam Dressings are clean, dry, and intact. Calves are soft and nontender. Neurov ascular is intact. Toes are mobile. She has good dorsiflexion plantarflexion of the right foot. Minimal drainage from her Hemovac at 25 mL from the latest shift. Discharge Data Allergies Allergy/AdvReac Type Severity Reaction Status Date / Time levofloxacin AdvReac Unknown Rapid Verified 05/23/21 08:15 heart beat Consultations 05/18/21 16:08 Consult Hospitalist Routine Procedures Performed Operation Date: 05/23/21 09:55 Actual Procedures p Right Total Knee Arthroplasty(Right) - Booker Del Cid MD Hospital Course (1) Primary osteoarthritis of right knee: Patient presented for same day admission following right total knee arthroplasty on 05/23/21. She tolerated procedure well. The Patient had an uneventful hospital course. Post-operatively, her activity was progressed and well tolerated. They participated in PT with ambulation distance of 140 feet. ROM of operative knee reached 50 degrees. Labs remained stable- lowest hemoglobin recorded: 11.4. [facility] [place] was consulted for medical management during admission. Pain controlled on oral medications. Please refer to daily progress notes and PT notes for complete details. After exam on 05/24/21, patient was felt to be stable for discharge home with HHPT. Patient will f/u in the office in about 2 weeks for further evaluation including x-rays and incision check, sooner if having any issues or concerns. Postop day 1 status post right total knee arthroplasty. PT/OT protocols. Weightbearing as tolerated. DVT prophylaxis-apixaban 5 mg p.o. twice daily, SCDs, BRYANNA hose. Pain management as written. Labs pending. DC planning-patient is planning for home health services upon discharge. Plan for discharge to home later today pending lab values and physical therapy status Lab Results 05/23/21 05/23/21 05/24/21 Range/Units 08:12 08:21 08:21 WBC 14.05 H (4.8-10.8) K/uL RBC 3.83 L (4.2-5.4) M/uL Hgb 11.4 L (12.0-16.0) g/dL Hct 34.6 L (37-47) % MCV 90.3 (80-100) fL MCH 29.8 (25-34) pg MCHC 32.9 (32-36) g/dL RDW Std Deviation 45.3 (36.4-46.3) fL RDW Coeff of Omkar 13.7 (11.5-14.5) % Plt Count 175 (130-400) K/uL MPV 10.9 H (7.4-10.4) fL Sodium (136-145) mmol/L Potassium (3.5-5.1) mmol/L Chloride (98-107) mmol/L Carbon Dioxide (21-32) mmol/L Anion Gap (3-11) BUN (6-23) mg/dl Creatinine (0.6-1.2) mg/dl Est Cr Clr Drug Dosing ml/min Est GFR ( Amer) ml/min Est GFR (Non-Af Amer) ml/min BUN/Creatinine Ratio (10-20) Glucose (70-99(Fasting)) mg/dl Calcium (8.5-10.1) mg/dl SARS-CoV-2, RNA, NAAT NEGATIVE (NEGATIVE) Blood Type A Positive Antibody Screen NEGATIVE 05/24/21 Range/Units 08:21 WBC (4.8-10.8) K/uL RBC (4.2-5.4) M/uL Hgb (12.0-16.0) g/dL Hct (37-47) % MCV (80-100) fL MCH (25-34) pg MCHC (32-36) g/dL RDW Std Deviation (36.4-46.3) fL RDW Coeff of Omkar (11.5-14.5) % Plt Count (130-400) K/uL MPV (7.4-10.4) fL Sodium 137 (136-145) mmol/L Potassium 4.1 (3.5-5.1) mmol/L Chloride 107 (98-107) mmol/L Carbon Dioxide 25 (21-32) mmol/L Anion Gap 5 (3-11) BUN 15 (6-23) mg/dl Creatinine 0.70 (0.6-1.2) mg/dl Est Cr Clr Drug Dosing 90.4 ml/min Est GFR ( Amer) 105.4 ml/min Est GFR (Non-Af Amer) 90.9 ml/min BUN/Creatinine Ratio 21.4 H (10-20) Glucose 121 H (70-99(Fasting)) mg/dl Calcium 8.4 L (8.5-10.1) mg/dl SARS-CoV-2, RNA, NAAT (NEGATIVE) Blood Type Antibody Screen Total Time Total Time Spent Total Time Spent (In Minutes): 20 Discharge Plan Discharge Items Patient Disposition: Home - Home Health Services Reason For Visit: Osteoarthritis Knee Right Discharge Diagnosis: Osteoarthritis Right Knee Activity: Per Instructions section Weightbearing: Right weightbearing Weightbearing Comment: As tolerated with walker Non-emergency contact: Surgeon Call non-emergency contact if: your pain is not controlled, your temperature is above 101.5, your wound has increased redness and your wound has increased drainage Follow-up/Referrals: Balbina Small MD [Primary Care Provider] - Booker Del Cid MD [Surgeon] - 06/09/21 10:15 am Diet: Regular Addtl Attending Provider Instructions: ACTIVITY RECOMMENDATIONS: SELF CARE INSTRUCTIONS AFTER TOTAL KNEE REPLACEMENT A. You may need to continue a physical therapy program after discharge from the hospital. There are several options available to you. Your doctor will assist you in selecting the best one for you. 1. An out-patient facility 2 to 3 times a week for therapy or home therapy. 2. Continue working on all exercises taught to you in the hospital. Your goals should be to increase bending of your knee to 90 degrees and beyond and to fully straighten your knee. B. You may progress at your own pace from walking with a walker or crutches to a cane; then to no assistive devices. C. Make walking a part of your daily routine. Be up as much as comfortable with rest periods throughout the day. Rest with leg elevation is very important. Use the ice wrap frequently for the first 3-4 weeks. D. There are no restrictions on activities. You may ride in a car, shop, participate in tire groover and all social activities. E. Wear the long elastic stockings (BRYANNA hose) 20 hours a day for 2 weeks after surgery. They can be removed several times a day for laundering and for a bath. F. You may shower, no tub baths until cleared by your doctor. SPECIAL CARE INSTRUCTIONS: VERY IMPORTANT TO READ AND REVIEW A. There are a few signs you need to watch for after you are home. Call [facility] if you notice any of the followin. Increased severe knee pain. Some pain is expected especially when you exercise. 2. Increased swelling in your leg or knee; pain or swelling of the calf muscle in either lower leg. 3. Any fluid drainage from the incision. 4. Shortness of breath or chest pain. B. Please call [facility] at if you have any concerns or questions about your operation or recovery. The doctor or his nurse will return your call promptly. C. You must take antibiotics before dental work, bladder, bowel or other surgery. Your doctor will provide you with a permanent care to carry describing this precaution. IMPORTANT: * REMEMBER TO TAKE APIXABAN TWICE DAILY. * CALL IF INCREASED PAIN, REDNESS, DRAINAGE OR FEVER GREATER THAT 101. * WEAR BRYANNA HOSE 20 HOURS PER DAY FOR 2 WEEKS. * ANDRA dressing - This is a large suction dressing covering your incision. This will help pull any excess drainage from the wound and allow your incision to heal properly. You may shower with this if you can keep the unit outside of the shower. If any bleeding or leakage is noted please call your doctor's office. This will remain on your incision for 7 days and then should be removed. This can be done yourself or by the home nursing staff if applicable. The entire unit is disposable once removed. Once removed, keep incision clean and dry. If redness or drainage is noted, please call your surgeon. . *Once the andra dressing is removed, keep a dressing of 4 x 4 gauze or ABD gauze over the wound until seen back in the office for your first visit. FOLLOW UP VISIT: If appointment is not already scheduled: Please call [facility] to make a follow-up appointment for 2 weeks after your surgery at . Stand-Alone Forms: My [facility] [employer] Smoking Cessation Medications and DC Order Prescriptions: New acetaminophen [Tylenol Extra Strength] 500 mg Tablet 1,000 mg PO Q8 14 Days Qty: 84 RF: 0 polyethylene glycol 3350 [Miralax] 17 gram powder in packet 17 g PO DAILY PRN (Reason: constipation) Qty: 5 RF: 0 oxycodone 5 mg Tablet 5 mg PO Q4H MDD 6 PRN (Reason: pain) Qty: 30 RF: 0 Continued metoprolol succinate 25 mg tablet extended release 24 hr 25 mg PO QAM Qty: 90 RF: 3 losartan 100 mg tablet 100 mg PO QAM Qty: 90 RF: 3 Eliquis 5 mg tablet 5 mg PO BID Qty: 60 RF: 5 Cognitive Health 500 mg Capsule 500 mg PO QAM RF: 0 gabapentin 100 mg capsule 100 mg PO BID RF: 0 multivitamin Tablet 1 tab PO QAM RF: 0 fluticasone propionate 50 mcg/actuation [place],Suspension 1 spray INTRANASAL HS RF: 0 Discontinued acetaminophen [Tylenol Arthritis Pain] 650 mg tablet extended release 1,300 mg PO Q12H PRN (Reason: fever or pain) RF: 0 Discharge Orders: Discharge Order (Routine); Ordered 05/24/21 Ordered By: Johan Mars Admission Data Admit Date/Time: 05/23/21 09:56 Attending Provider: Booker Del Cid Admit Provider: Booker Del Cid Primary Care Provider: Balbina Small Other Providers: Mp Molina Other Interventions: Discharge Summary Assessment (RN) Last Done: 05/24/21 10:11
== END 2021-05-24 13:04 | disposition home health service (06) | DRG 470 ==
LOC: ASU 07:53 → 3N 09:56